=== PATIENT | male | born 1960 | race Caucasian/White ===

== ENCOUNTER 2021-06-26 23:38 | Emergency (ER) | payer OTHER, SELFPAY ==
--- NOTE | ~2021-06-26 | XR_ITS ---
EXAMINATION: XR hip LT 2V w AP pelvis DATE: 06/27/2021 02:41 INDICATION: Left hip pain and tremors in the left leg. TECHNIQUE: Anteroposterior view of the pelvis and anteroposterior and frog-leg lateral views of the l eft hip were obtained. COMPARISON: None. FINDINGS: Alignment is normal. No fracture. Mild bilateral hip osteoarthritis. Soft tissues are unremarkable. IMPRESSION: 1. Mild bilateral hip osteoarthritis. No acute osseous abnormality. Reviewed, dictated and finalized at location A.
[2021-06-26 23:42] VITALS: BP 92/61; PULSE 75; RESP 16; TEMP 36.7; O2SAT 94
[2021-06-27] VITALS (7 sets, daily range): BP systolic 100–141; BP diastolic 59–78; PULSE 60–83; RESP 13–24; O2SAT 95–99
[2021-06-27] MEDS: SODIUM CHLORIDE 0.9% IV 1,000 ML 150 ML IV CONT (00:05)
[2021-06-27 01:00] LABS: Basophils Absolute Auto 0.1 K/mm3 (0.0-0.1); Basophils Percent Auto 0.8 % (0.2-1.2); Eosinophils Absolute Auto 0.1 K/mm3 (0-0.3); Eosinophils Percent Auto 0.9 % (0-4.4); Hematocrit 36.4 % (42.0-52.0); Hemoglobin 12.5 g/dL (14.0-18.0); Immature Granulocyte Absolute 0.04 K/mm3 (0.00-0.031); Immature Granulocyte Percent A 0.5 % (0-0.5); Lymphocytes Absolute Auto 0.96 K/mm3 (0.9-3.2); Mean Corpuscular HGB Conc 34.3 g/dl (32-36); Mean Corpuscular Hemoglobin 30.2 pg (26-34); Mean Corpuscular Volume 87.9 fl (80-100); Monocytes Absolute Auto 0.7 K/mm3 (0.1-0.6); Monocytes Percent Auto 8.2 % (2.6-8.5); Neutrophils Absolute Auto 6.2 K/mm3 (1.3-6.7); Neutrophils Percent Auto 77.6 % (45.5-73.1); Platelet Count Result 122 k/mm3 (150-375); Red Blood Count 4.14 M/mm3 (4.6-6.20); Red Cell Distribution Width 12.8 % (11.5-14.5)
[2021-06-27 01:18] LABS: Alanine Aminotransferase 20 U/L (4-50); Albumin Level 4.4 g/dL (3.5-5.1); Alkaline Phosphatase 88 U/L (38-126); Anion Gap 10 mmol/L (8-16); Aspartate Amino Transferase 26 U/L (17-59); Bilirubin,Total 0.3 mg/dL (0.2-1.3); Blood Urea Nitrogen 48 mg/dL (9-20); Calcium 9.1 mg/dL (8.4-10.2); Carbon Dioxide 25 mmol/L (22-30); Chloride 98 mmol/L (98-107); Estimated Glomerular Filt Rate 34; Glucose 116 mg/dL (65-110); Magnesium 1.8 mg/dL (1.6-2.3); Potassium 4.3 mmol/L (3.4-5.0); Sodium 133 mmol/L (137-145)
--- NOTE | 2021-06-27 01:23 | ED.GENADULT ---
HPI - General Adult General Chief complaint: Neuro Symptoms/Deficit Stated complaint: tremors Time Seen by Provider: 06/26/21 23:44 Source: patient and EMS Mode of arrival: EMS Limitations: no limitations History of Present Illness HPI narrative: 60-year-old with a history of CVA presently IN rehab unit who was sent here for left leg pain and cramping. Patient states that he had intense cramping in his left thigh radiating into his lower abdomen. Patient states that he gets clonus at times since the time of his stroke however this pain was intense he was referred here. By the time he came to the ER his symptoms have much improved .He denies any other complaints. Related Data Home Medications Medication Instructions Recorded Confirmed alprazolam 0.25 mg PO HS 06/24/21 06/24/21 amlodipine 10 mg PO DAILY 06/24/21 06/24/21 famotidine 20 mg PO DAILY 06/24/21 06/24/21 hydrochlorothiazide 12.5 mg PO DAILY 06/24/21 06/24/21 levetiracetam 500 mg PO BID 06/24/21 06/24/21 lisinopril 40 mg PO DAILY 06/24/21 06/24/21 rosuvastatin 10 mg PO HS 06/24/21 06/24/21 sertraline 200 mg PO DAILY 06/24/21 06/24/21 trazodone 50 mg PO HS 06/24/21 06/24/21 Allergies Allergy/AdvReac Type Severity Reaction Status Date / Time Penicillins Allergy Hives Verified 06/27/21 00:05 Review of Systems Review of Systems: All systems reviewed & are unremarkable except as noted in HPI and below Constitutional: Constitutional: Reports no additional constitutional complaints Eyes: Eyes: Reports no additional eye complaints ENT: Reports system reviewed and no additional complaints, except as documented Cardiovascular: Cardiovascular: Reports no additional cardiovascular complaints Respiratory: Respiratory: Reports no additional respiratory complaints Gastrointestinal: Gastrointestinal: Reports no additional gastrointestinal complaints Musculoskeletal: Musculoskeletal: Reports as per HPI Integumentary/Breasts: Skin/Breast: Reports system reviewed and no additional complaints, except as docu Neurologic: Reports system reviewed and no additional complaints, except as documented [facility] Past Medical History Medical History Anxiety Attention deficit disorder Cerebrovascular accident, embolic Cognitive deficits Depression Dry eyes GERD (gastroesophageal reflux disease) Hemorrhagic cerebrovascular accident (CVA) History of alcohol abuse History of diverticulitis of colon History of gastrostomy tube placement History of tobacco abuse Hyperlipidemia Hypertension Insomnia Left spastic hemiplegia Marijuana use, continuous Mood disorder Obstructive sleep apnea Seizure disorder Urinary incontinence Surgical History Surgical History (Updated 06/24/21 @ 13:12 by Essie Velez DO) History of appendectomy History of colostomy History of colostomy reversal History of hernia repair History of tracheostomy Family History Family History (Updated 06/24/21 @ 14:36 by Brandi العلي RN) Father Depression Social History Social History (Updated 06/24/21 @ 13:15 by Essie Velez DO) Social History: patient lives with his spouse in a 2 level house with 2 steps to enter. The master bedroom and bathroom are on the main level. Smoking status: Former smoker Tobacco type: cigarettes Smoking end date: 06/24/21 Additional smoking assessment comments: patient states that he currently smokes marijuana daily Alcohol intake: former Substance use type: marijuana Other substance usage details: marijuana for over 45 years Gender identity (if verbalized by the patient): Male Course Course Emergency Course: Patient still continues to feel better, I informed him about his lab work. He does feel comfortable going home. Advised him to drink more water. Vital Signs Vital signs: Vital Signs Temperature 36.7 C 06/26/21 23:42 Pulse Rate 75 06/26/21 23:42 Respiratory
[2021-06-27] MEDS: LORazepam INJ (*CRX) 2 MG/ML VIAL 1 MG IV PUSH (02:27)
--- NOTE | 2021-06-27 03:00 | PC.NURSE ---
[facility], states that she'll talk to the doctor about transportation back to facility.
--- NOTE | 2021-06-27 06:00 | PC.NURSE ---
spoke with [facility], that she would speak with client integration manager about patient transport
--- NOTE | 2021-06-27 07:31 | PC.NURSE ---
Assumed care from Alebrto. He states that we are currently trying to find transportation for pt. He states he has attempted to call pt multiple times with no answer
== END 2021-06-27 08:30 ==
PROVIDERS: Emergency Provider Family Medicine
DX: R25.2 Cramp and spasm (principal); I12.9 Hypertensive chronic kidney disease with stage 1 through stage 4 chronic kidney disease, or unspecified chronic kidney disease; N18.9 Chronic kidney disease, unspecified; I69.119 Unspecified symptoms and signs involving cognitive functions following nontraumatic intracerebral hemorrhage; I69.154 Hemiplegia and hemiparesis following nontraumatic intracerebral hemorrhage affecting left non-dominant side; E78.5 Hyperlipidemia, unspecified; G47.33 Obstructive sleep apnea (adult) (pediatric); G40.909 Epilepsy, unspecified, not intractable, without status epilepticus; K21.9 Gastro-esophageal reflux disease without esophagitis; M16.0 Bilateral primary osteoarthritis of hip; F41.9 Anxiety disorder, unspecified; F98.8 Other specified behavioral and emotional disorders with onset usually occurring in childhood and adolescence; Z87.891 Personal history of nicotine dependence
CPT/HCPCS: 36415; 73502; 80053; 83735; 85025; 96361; 96374; 99284; J2060; J7030